=== PATIENT | female | born 1975 | race Caucasian/White ===

== ENCOUNTER 2017-07-04 02:47 | Emergency (ER) | payer MEDICAID ==
--- NOTE | 2017-07-04 03:07 | NUR ---
Called for triage, no answer.
--- NOTE | 2017-07-04 03:37 | NUR ---
2nd call for triage, no answer.
--- NOTE | 2017-07-04 03:42 | NUR ---
PER ADMITTING, PT HAS LEFT ER.
== END 2017-07-04 03:47 | disposition left against medical advice (07) ==
LOC: ER 02:47
DX: Z53.21 Procedure and treatment not carried out due to patient leaving prior to being seen by health care provider (principal)

== ENCOUNTER 2017-08-06 06:49 | Emergency (ER) | payer MEDICAID ==
[~2017-08-06] VITALS: Ht 170.2 cm; Wt 56.7 kg
--- NOTE | 2017-08-06 07:07 | NUR ---
41 YO MALE BB SELF. PATIENT IS ALERT AND ORIENTED X 3, C/O BODY ACHES, FEVERS MARKS X 2 WEEKS. PATIENT AMBULATED TO ER BED, SKIN WARM AND DRY, RESP EVEN AND UNLABORED. AWAITING ORDERS FROM PROVIDER, WILL CONTINUE TO MONITOR
[2017-08-06 07:52] VITALS: BP 120/84
--- NOTE | 2017-08-06 07:52 | NUR ---
Patient discharged to home in stable condition. Written and verbal after care instructions given. Patient verbalizes understanding of instruction.
== END 2017-08-06 07:53 | disposition home or self-care (01) ==
LOC: ER 06:50
DX: R22.1 Localized swelling, mass and lump, neck (principal); M79.644 Pain in right finger(s); M79.645 Pain in left finger(s); F17.200 Nicotine dependence, unspecified, uncomplicated
CPT/HCPCS: A4606; Z7502; Z7610

== ENCOUNTER 2017-11-10 18:19 | Emergency (ER) | payer MEDICAID, OTHER ==
[~2017-11-10] VITALS: Ht 167.6 cm; Wt 54.4 kg
[2017-11-10 18:19] VITALS: BP 126/61
[2017-11-10] MEDS ORDERED: BACI/NEOM/POLY B OINT PKT 1 UDPKT PACKET ONE (18:48)
[2017-11-10] MEDS ORDERED: KETOROLAC TROMETHAMINE INJ 30 MG/ML VIAL ONE (18:48)
[2017-11-10] MEDS ORDERED: KETOROLAC TROMETHAMINE INJ 30 MG/ML VIAL IM ONE (19:00)
[2017-11-10] MEDS ORDERED: BACI/NEOM/POLY B OINT PKT 1 UDPKT PACKET TP ONE (19:00)
[2017-11-10 19:18] LABS: APPEARANCE,URINE Cloudy (CLEAR); BILIRUBIN,URINE Negative (NEGATIVE); BLOOD, URINE Negative Ery/uL (NEGATIVE); COLOR,URINE Light yellow (YELLOW); KETONES,URINE Negative (NEGATIVE); LEUKOCYTE ESTERASE ,URINE Large (NEGATIVE); NITRITE, URINE Positive (NEGATIVE); PH,URINE 6.5 (5.0-8.0); PROTEIN,URINE Negative (NEGATIVE); UGLUCOSE Negative (NEGATIVE); UROBILINOGEN,URINE 0.2 EU/dL (0.2)
[2017-11-10 19:46] LABS: RBC,URINE 0-2 /HPF (0-2); WBC,URINE 21-50 /HPF (0-3)
[2017-11-10 19:47] LABS: BACTERIA,URINE Many /HPF (None Seen); SQUAMOUS EPITHELIAL CELL,UR Few /HPF (None Seen)
== END 2017-11-10 19:47 | disposition home or self-care (01) ==
LOC: ER 18:20
DX: S63.501A Unspecified sprain of right wrist, initial encounter (principal); S80.212A Abrasion, left knee, initial encounter; F10.10 Alcohol abuse, uncomplicated; N39.0 Urinary tract infection, site not specified; F17.200 Nicotine dependence, unspecified, uncomplicated; Y90.9 Presence of alcohol in blood, level not specified; Z60.2 Problems related to living alone; W01.0XXA Fall on same level from slipping, tripping and stumbling without subsequent striking against object, initial encounter; Y93.K1 Activity, walking an animal; Y92.89 Other specified places as the place of occurrence of the external cause; Y99.8 Other external cause status
CPT/HCPCS: 73110; 73560-TC; 81000-TC; 84703-TC; 87086-TC; 87186-TC; A4606; J1885; Z7610

== ENCOUNTER 2018-07-07 22:34 | Emergency (ER) | payer OTHER ==
[~2018-07-07] VITALS: Ht 170.2 cm; Wt 54.4 kg
--- NOTE | 2018-07-07 22:49 | NUR ---
BIBSELF C/O R BREAST PAIN/ITCHING S/P "NIPPLE PIERCING" X 1 MONTH AGO. PT IS AAOX4. AFEBRILE. NO S/S OF ACUTE DISTRESS NOTED. RR EVEN AND UNLABORED. BEDSIDE FOR ZECHARIAHAL
--- NOTE | 2018-07-07 23:28 | NUR ---
URINE SAMPLE LABELED AND SENT TO LAB
[2018-07-07 23:36] LABS: APPEARANCE,URINE Clear (CLEAR); BILIRUBIN,URINE Negative (NEGATIVE); BLOOD, URINE Negative Ery/uL (NEGATIVE); COLOR,URINE Yellow (YELLOW); KETONES,URINE Trace (NEGATIVE); LEUKOCYTE ESTERASE ,URINE Negative (NEGATIVE); NITRITE, URINE Negative (NEGATIVE); PH,URINE 5.5 (5.0-8.0); PROTEIN,URINE Negative (NEGATIVE); UGLUCOSE Negative (NEGATIVE); UROBILINOGEN,URINE 0.2 EU/dL (0.2)
--- NOTE | 2018-07-08 00:09 | NUR ---
Patient discharged to home in stable condition. Written and verbal after care instructions given. Patient verbalizes understanding of instruction.
[2018-07-08 00:11] VITALS: BP 130/84
== END 2018-07-08 00:28 | disposition home or self-care (01) ==
LOC: ER 22:38
DX: N64.52 Nipple discharge (principal); M25.561 Pain in right knee; F10.10 Alcohol abuse, uncomplicated; F17.200 Nicotine dependence, unspecified, uncomplicated; Y90.9 Presence of alcohol in blood, level not specified; Z60.2 Problems related to living alone
CPT/HCPCS: 76642-TC; 81000-TC; 84703-TC